=== PATIENT | female | born 1990 | race Caucasian/White ===

== ENCOUNTER → 2017-08-29 | Outpatient (CLI) | payer OTHER | END | disposition home or self-care (01) | LOC: LABWHC1 14:06 | PROVIDERS: ATTEND Obstetrics & Gynecology | DX: Z34.90 Encounter for supervision of normal pregnancy, unspecified, unspecified trimester (principal) | CPT/HCPCS: 36415; 84702 ==

== ENCOUNTER → 2017-09-05 | Outpatient (CLI) | payer OTHER ==
--- NOTE | 2017-09-05 14:08 | US ---
EXAMINATION TYPE: US OB <= 14 wk fetus DATE OF EXAM: 09/05/2017 COMPARISON: Prior pelvic ultrasound August 25, 2017 CLINICAL HISTORY: V22.2,Z34.90. Confirm Dates, F/U from previous EXAM PERFORMED: Transabdominal (TA) EXAM MEASUREMENTS: GESTATIONAL AGE / DATING Physician Established: (6 weeks/6 days) EDC: 04/25/2018 Dates by LMP: (7 weeks/6 days) EDC: 04/18/2018 Dates by First Scan: (6 weeks/6 days) EDC: 04/25/2018 Dates by Current Scan for: (6 weeks/6 days) EDC: 04/25/2018 MATERNAL ANATOMY Uterus: 11.1 x 4.6 x 7.1 cm Right Ovary: 3.9 x 2.8 x 2.3 cm Left Ovary: 2.8 x 2.0 x 2.2 cm Post CDS / Adnexa: wnl Presence of free fluid: No Presence of corpus luteal cyst: Right Ovary= 2.0 x 1.4 x 1.8 cm Presence of subchorionic bleed: No GESTATION / SURVEY CRL: 0.9 cm (6 weeks/6 days) MSD: wnl Yolk Sac (normal less than 6mm): 3mm Heart Rate: 126 bpm Rhythm: Normal IUP: Viable IUP Single, viable IUP, No abnormality seen at this time Single live intrauterine gestation is now identified as as gestational sac, yolk sac, and pole are again seen. heart tones are detected and lower limits of normal. No free fluid is seen in p elvic cul-de-sac. Both ovaries are identified. Within the right ovary there is redemonstration of peripheral oval 2.0 c m lesion felt to reflect corpus luteal cyst. No suspicious adnexal masses are seen. IMPRESSION: Single live intrauterine gestation is identified with satisfactory progression from prior. Mean crown -rump length is 0.9 cm corresponding to 6 week 6 day old fetus.
== END | disposition home or self-care (01) ==
LOC: RADUSWWP 13:04 → EDUNIT# 13:40
PROVIDERS: ATTEND Obstetrics & Gynecology
DX: Z36.9 Encounter for antenatal screening, unspecified (principal); Z34.90 Encounter for supervision of normal pregnancy, unspecified, unspecified trimester; Z3A.01 Less than 8 weeks gestation of pregnancy
CPT/HCPCS: 36415; 76801; 84144; 84702

== ENCOUNTER 2017-09-11 18:01 | Emergency (ER) | payer OTHER ==
--- NOTE | 2017-09-11 18:57 | ED ---
General Adult HPI - General Chief complaint: Vaginal Bleeding Stated complaint: problems, 8 weeks Time Seen by Provider: 09/11/17 18:41 Source: patient Mode of arrival: ambulatory Limitations: no limitations - History of Present Illness Initial comments: patient is a 26-year-old who presents with a chief complaint of vaginal spotting and abdominal pain. Patient is 7 weeks and 5 days . Her last ultrasound showed adequate heart activity. Patient states that since yesterday she began to spot and has had mild abdominal pain around her bellybutton. Patient cannot identify any inciting incidences. There are no aggravating or alleviating factors. The patient denies any dysuria or frequency. Patient states that about 3 weeks ago she came to the emergency department for similar symptoms and was diagnosed with cervicitis and was treated with azithromycin, and Rocephin. She is placed on pelvic rest at that time. - Related Data Home Medications Medication Instructions Recorded Confirmed Kkk-Rgez-Bttka Acid 1 cap PO HS 08/25/17 09/11/17 [-U Capsule (formulary)] Allergies Allergy/AdvReac Type Severity Reaction Status Date / Time Penicillins Allergy Rash/Hives Verified 09/11/17 18:53 Sulfa (Sulfonamide Allergy Rash/Hives Verified 09/11/17 18:53 Antibiotics) Review of Systems ROS Statement: Those systems with pertinent positive or pertinent negative responses have been documented in the HPI. ROS Other: All systems not noted in ROS Statement are negative. Constitutional: Denies: fever Eyes: Denies: vision change ENT: Denies: ear pain, throat pain Respiratory: Denies: cough Cardiovascular: Denies: chest pain Endocrine: Denies: fatigue Gastrointestinal: Reports: abdominal pain, nausea, vomiting Genitourinary: Denies: dysuria, frequency Musculoskeletal: Denies: back pain Skin: Denies: rash, lesions Neurological: Denies: headache Past Medical History Past Medical History: No Reported History History of Any Multi-Drug Resistant Organisms: None Reported Past Surgical History: No Surgical Hx Reported Past Psychological History: Anxiety Smoking Status: Never smoker Past Alcohol Use History: None Reported Past Drug Use History: None Reported General Exam Limitations: no limitations General appearance: alert, in no apparent distress Head exam: Present: atraumatic, normocephalic Respiratory exam: Present: normal lung sounds bilaterally Cardiovascular Exam: Present: regular rate, normal rhythm GI/Abdominal exam: Present: soft, other (abdominal exam is limited secondary to body habitus). Absent: distended, tenderness Rectal exam: Present: deferred Back exam: Absent: CVA tenderness (R), CVA tenderness (L) Neurological exam: Present: alert, oriented X3 Psychiatric exam: Present: normal affect, normal mood Skin exam: Present: warm, dry, intact Course Vital Signs 09/11/17 09/11/17 18:22 20:38 Temperature 98.1 F 97.5 F L Pulse Rate 87 80 Respiratory 20 18 Rate Blood Pressure 134/64 137/70 O2 Sat by Pulse 100 100 Oximetry Medical Decision Making - Medical Decision Making patient is a 26-year-old presents with a chief complaint of vaginal spotting, 7 weeks and 5 days . We'll send basic labs, hCG, urinalysis, and sent patient for a ultrasound. 9:51 PM Ultrasound evaluation of this patient shows a viable intrauterine dated at 7 weeks and 5 days without any identification of constant process. Laboratory evaluation is within normal limits. Beta hCG is just under 80,000. I discussed the results and findings with the patient. I explained to her what a "threatened " is and how she should manage it. The patient was instructed to follow-up with [employer]OYEE [employer], and was instructed to go on pelvic rest. Patient was instructed on signs and symptoms that should prompt return visit to the emergency department. At this time, patient is stable for discharge. - Lab Data Result diagrams: 09/11/17 20:08 09/11/17 20:08 Lab Results 09/11/17 09/11/17 09/11/17 Range/Units 19:30 20:08 20:08 WBC 10.9 H (3.8-10.6) k/uL RBC 4.86 (3.80-5.40) m/uL Hgb 12.5 (11.4-16.0) gm/dL Hct 39.1 (34.0-46.0) % MCV 80.4 (80.0-100.0) fL MCH 25.8 (25.0-35.0) pg MCHC 32.1 (31.0-37.0) g/dL RDW 15.1 (11.5-15.5) % Plt Count 359 (150-450) k/uL Neutrophils % 76 % Lymphocytes % 18 % Monocytes % 5 % Eosinophils % 1 % Basophils % 0 % Neutrophils # 8.3 H (1.3-7.7) k/uL Lymphocytes # 1.9 (1.0-4.8) k/uL Monocytes # 0.5 (0-1.0) k/uL Eosinophils # 0.1 (0-0.7) k/uL Basophils # 0.0 (0-0.2) k/uL Sodium 136 L (137-145) mmol/L Potassium 4.0 (3.5-5.1) mmol/L Chloride 104 (98-107) mmol/L Carbon Dioxide 23 (22-30) mmol/L Anion Gap 9 mmol/L BUN 7 (7-17) mg/dL Creatinine 0.58 (0.52-1.04) mg/dL Est GFR (MDRD) Af Amer >60 (>60 ml/min/1.73 sqM) Est GFR (MDRD) Non-Af >60 (>60 ml/min/1.73 sqM) Glucose 82 (74-99) mg/dL Calcium 9.8 (8.4-10.2) mg/dL HCG, Quant 01957.3 mIU/mL Urine Color Yellow Urine Appearance Clear (Clear) Urine pH 6.0 (5.0-8.0) Ur Specific [place] 1.011 (1.001-1.035) Urine Protein Negative (Negative) Urine Glucose (UA) Negative (Negative) Urine Ketones Negative (Negative) Urine Blood Negative (Negative) Urine Nitrite Negative (Negative) Urine Bilirubin Negative (Negative) Urine Urobilinogen <2.0 (<2.0) mg/dL Ur Leukocyte Esterase Negative (Negative) Disposition Clinical Impression: Threatened Disposition: HOME SELF-CARE Condition: Good Instructions: Threatened Miscarriage (ED), Pelvic Rest (ED) Referrals: None,Stated [Primary Care Provider] - 1-2 days Malena Gary MD [STAFF PHYSICIAN] - 1-2 days
[2017-09-11 19:37] LABS: Appearance,Urine Clear (Clear); Bilirubin,Urine Negative (Negative); Glucose,Urine (UA) Negative (Negative); Ketones,Urine Negative (Negative); Leukocyte Esterase,Urine Negative (Negative); Nitrite,Urine Negative (Negative); Protein,Urine Negative (Negative); Specific Gravity,Urine 1.011 (1.001-1.035); UA Billing (MACRO vs. MICRO) CHEM; Urobilinogen,Urine <2.0 mg/dL (<2.0)
--- NOTE | 2017-09-11 19:59 | US ---
EXAMINATION TYPE: US OB <= 14 wk fetus DATE OF EXAM: 09/11/2017 COMPARISON: NONE CLINICAL HISTORY: Pain. spotting EXAM PERFORMED: Transabdominal (TA) EXAM MEASUREMENTS: GESTATIONAL AGE / DATING Physician Established: (7 weeks/5 days) EDC: 04/25/2018 Dates by LMP: (7 weeks/5 days) EDC: 04/25/2018 Dates by First Scan: (6 weeks/6 days) EDC: 04/25/2018 Dates by Current Scan for: (7 weeks/5 days) EDC: 04/25/2018 MATERNAL ANATOMY Uterus: 10.0 x 5.5 x 6.9 cm Post CDS / Adnexa: wnl Presence of free fluid: no Presence of corpus luteal cyst: no Presence of subchorionic bleed: no GESTATION / SURVEY CRL: 1.4cm (7 weeks/5 days) Yolk Sac (normal less than 6mm): 4 Heart Rate: 158 bpm Rhythm: Normal IUP: Viable IUP Beta HcG (if available): Not available at this time Viable IUP 7wks 5days AFIA 04/25/2018 HR 158BPM I see no complicating process. IMPRESSION: The ultrasound gestational age is 7 weeks 5 days.
[2017-09-11 20:20] LABS: Basophils % (A) 0 %; CH 25.4; CHCM 31.7; Eosinophils # (A) 0.1 k/uL (0-0.7); Eosinophils % (A) 1 %; HCT 39.1 % (34.0-46.0); HDW 2.22; HGB 12.5 gm/dL (11.4-16.0); Luc # (Auto) 0.06; Luc % (Auto) 1; Lymphocytes # (A) 1.9 k/uL (1.0-4.8); Lymphocytes % (A) 18 %; MCH 25.8 pg (25.0-35.0); MCHC 32.1 g/dL (31.0-37.0); MCV 80.4 fL (80.0-100.0); Mean Platelet Volume 7.4; Monocytes # (A) 0.5 k/uL (0-1.0); Monocytes % (A) 5 %; Neutrophils # (A) 8.3 k/uL (1.3-7.7); Neutrophils % (A) 76 %; RBC 4.86 m/uL (3.80-5.40); RDW 15.1 % (11.5-15.5); WBC 10.9 k/uL (3.8-10.6); WBC (Perox) 11.36
[2017-09-11 20:31] LABS: Anion Gap 9 mmol/L; Blood Urea Nitrogen 7 mg/dL (7-17); Calcium 9.8 mg/dL (8.4-10.2); Carbon Dioxide 23 mmol/L (22-30); Chloride 104 mmol/L (98-107); Glucose 82 mg/dL (74-99); Non-African American GFR(MDRD) >60 (>60 ml/min/1.73 sqM); Sodium 136 mmol/L (137-145)
[2017-09-11 22:02] VITALS: BP 153/91; PULSE 83; RESP 16; TEMP 98.3
== END 2017-09-11 22:02 | disposition home or self-care (01) ==
LOC: EC 18:01
DX: O20.0 Threatened abortion (principal); Z3A.01 Less than 8 weeks gestation of pregnancy; Z88.0 Allergy status to penicillin; Z88.2 Allergy status to sulfonamides; Z79.899 Other long term (current) drug therapy
CPT/HCPCS: 36415; 76801; 80048; 81003; 84702; 85025; 87086; 99284

== ENCOUNTER → 2017-09-18 | Outpatient (CLI) | payer OTHER ==
--- NOTE | 2017-09-18 09:26 | US ---
EXAMINATION TYPE: US OB <= 14 wk fetus DATE OF EXAM: 09/18/2017 COMPARISON: NONE CLINICAL HISTORY: 26-year-old female Z34.90 confirm dates. No symptoms today, confirm dates, spotting earlier in Technique: Transabdominal FINDINGS: EXAM MEASUREMENTS: GESTATIONAL AGE / DATING Physician Established: (8 weeks/5 days) EDC: 04/25/2018 Dates by LMP: (9 weeks/5 days) EDC: 04/18/2018 Dates by First Scan: (8 weeks/5 days) EDC: 04/25/2018 Dates by Current Scan for: (8 weeks/5 days) EDC: 04/25/2018 MATERNAL ANATOMY Uterus: 7.5 x 6.7 x 5.8cm Right Ovary: 3.2 x 2.6 x 2.4cm Left Ovary: not seen due to bowel gas and enlarging uterus Post CDS / Adnexa: wnl Presence of free fluid: no Presence of corpus luteal cyst: yes, right ovary = 2.2cm Presence of subchorionic bleed: no GESTATION / SURVEY CRL: 2.1 (8 weeks/5 days) MSD: wnl Yolk Sac (normal less than 6mm): not seen today Heart Rate: 167 bpm Rhythm: Normal IUP: Viable IUP Date of LMP: unknown Beta HcG (if available): not available 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 Single live uterine with established gestational age of 8 weeks 5 days by prior dating s can. Current ultrasound biometry is exactly concordant. 2. Complete survey recommended at 18-20 weeks.
== END | disposition home or self-care (01) ==
LOC: RADUSWWP 07:42
PROVIDERS: ATTEND Obstetrics & Gynecology
DX: Z34.91 Encounter for supervision of normal pregnancy, unspecified, first trimester (principal); Z3A.08 8 weeks gestation of pregnancy
CPT/HCPCS: 76801

== ENCOUNTER 2017-10-13 20:57 | Emergency (ER) | payer OTHER ==
[2017-10-13] MEDS ORDERED: MAGNESIUM CITRATE 296 ML BOTTLE ONE (22:50)
[2017-10-14] MEDS ORDERED: diphenhydrAMINE 50 MG/ML 1 ML VIAL ONE (00:34)
[2017-10-14] MEDS ORDERED: METOCLOPRAMIDE 5 MG/ML 2 ML VIAL ONE (00:34)
[2017-10-14 14:41] LABS: Basophils % (A) 0 %; Eosinophils # (A) 0.1 k/uL (0-0.7); Eosinophils % (A) 1 %; HCT 38.1 % (34.0-46.0); HGB 12.5 gm/dL (11.4-16.0); Lymphocytes # (A) 2.1 k/uL (1.0-4.8); Lymphocytes % (A) 20 %; MCH 26.3 pg (25.0-35.0); MCHC 32.7 g/dL (31.0-37.0); MCV 80.4 fL (80.0-100.0); Mean Platelet Volume 7.6; Monocytes # (A) 0.6 k/uL (0-1.0); Monocytes % (A) 5 %; Neutrophils # (A) 7.6 k/uL (1.3-7.7); Neutrophils % (A) 73 %; Platelet Count 323 k/uL (150-450); RBC 4.74 m/uL (3.80-5.40); RDW 14.9 % (11.5-15.5); WBC 10.4 k/uL (3.8-10.6)
[2017-10-14 16:03] LABS: HCG,Quantitative Serum 82346.8 mIU/mL
[2017-10-14 16:04] LABS: ALT 33 U/L (9-52); AST 19 U/L (14-36); Alkaline Phosphatase 56 U/L (38-126); Anion Gap 14 mmol/L; Blood Urea Nitrogen 6 mg/dL (7-17); Calcium 9.6 mg/dL (8.4-10.2); Carbon Dioxide 22 mmol/L (22-30); Chloride 102 mmol/L (98-107); Glucose 73 mg/dL (74-99); Potassium 4.1 mmol/L (3.5-5.1); Sodium 138 mmol/L (137-145); Total Bilirubin 0.2 mg/dL (0.2-1.3)
[2017-10-14 17:21] LABS: Appearance,Urine Clear (Clear); Bilirubin Confirmation, Urine Negative (Negative); Bilirubin,Urine Negative (Negative); Blood,Urine Negative (Negative); Color,Urine Yellow; Glucose,Urine (UA) Negative (Negative); Ketones,Urine Negative (Negative); Leukocyte Esterase,Urine Negative (Negative); Nitrite,Urine Negative (Negative); Protein Confirmation,Urine Negative (Negative); Specific Gravity,Urine 1.023 (1.001-1.035); Urobilinogen,Urine <2.0 mg/dL (<2.0)
--- NOTE | 2017-10-14 21:00 | US ---
EXAMINATION TYPE: US OB <= 14 wk fetus DATE OF EXAM: 10/14/2017 COMPARISON: NONE EXAM PERFORMED: transabdominal (TA) EXAM MEASUREMENTS: GESTATIONAL AGE / DATING Physician Established: (12wks/ 2days) EDC: 04/25/18 Dates by LMP: (13 wks/2 days) EDC: 04/18/18 Dates by First Scan: (12wks/2days) EDC: 04/25/18 Dates by Current Scan: (13wks/2days) EDC: 04/18/18 MATERNAL ANATOMY Uterus: 12.4 x 7.8 x 8.7cm Right Ovary: 3.4 x 2.3 x 1.7cm Left Ovary: 3.1 x 1.9 x 2.1cm Post CDS / Adnexa: wnl Presence of free fluid: no Presence of corpus luteal cyst: right ovary = 2.3 x 1.7 x 1.6cm GESTATION / SURVEY IUP: Single CRL: 7.1cm (13wks/2days) Yolk Sac (normal less than 6mm): not seen Heart Rate: 162 bpm Rhythm: normal Viable IUP PATIENT HISTORY: Pelvic cramping. Pain. Date of LMP: unknown IMPRESSION: Single viable IUP 13wks/2days with AFIA of 04/18/18. Probable corpus luteum right ovary
== END 2017-10-14 01:21 | disposition home or self-care (01) ==
LOC: EC 20:57
DX: O99.611 Diseases of the digestive system complicating pregnancy, first trimester (principal); K59.00 Constipation, unspecified; Z87.891 Personal history of nicotine dependence; Z88.0 Allergy status to penicillin; Z88.2 Allergy status to sulfonamides; Z3A.13 13 weeks gestation of pregnancy
CPT/HCPCS: 36415; 80053; 85025; 81003; 84702; 76801; 99284; 96374; 96375; J1200; J2765

== ENCOUNTER → 2017-11-24 | Outpatient (CLI) | payer OTHER ==
--- NOTE | 2017-11-24 11:18 | US ---
EXAMINATION TYPE: US OB anatomy transabd DATE OF EXAM: 11/24/2017 COMPARISON: US 09/2017 HISTORY: Z34.92 SUPERVISION OF NORMAL PREG IN SECOND TRIMESTER Anatomy, no complaints per patient, la rger habitus. TECHNIQUE: Transabdominal (TA) EXAM MEASUREMENTS: GESTATIONAL AGE / DATING Physician Established: (18 weeks/ 2days) EDC: 04/25/2018 Dates by LMP: (19 weeks/2 days) EDC: 04/18/2018 Dates by First Scan: (18 weeks/2 days) EDC: 04/25/2018 Dates by Current Scan for: (18 weeks/1 days) EDC: 04/26/2018 SURVEY IUP: Single PLACENTA: Posterior PREVIA: No previa SANTO: 14.0 cm Normal CERVICAL LENGTH (transabdominal: norm > 3.0cm): 3.7 cm BIOMETRY PRESENTATION: Vertex BPD: 4.1 cm 18 weeks / 3 days HC: 15.2 cm 18 weeks / 2 days AC: 12.4 cm 18 weeks / 0 days FL: 2.6 cm 17 weeks / 6 days ESTIMATED WEIGHT IN GRAMS: 218.2 grams ESTIMATED WEIGHT IN LBS/OZ: 0 lbs. 8 oz. WEIGHT PERCENTAGE BASED ON ESTABLISHED DATE: 27.3 % HC/AC: 1.2 cm Normal FL/AC: 20.6 Normal HEART RATE: 147 bpm RHYTHM: Normal ANATOMY SEEN (within normal limits): * Lateral Vent (< 1 cm) 0.7 cm Midline Falx Stomach Diaphragm Kidneys (bilateral) Bladder Cord Insert Three Vessel Cord Arms (bilateral) Legs (bilateral) ANATOMY NOT SEEN: Limited study due to body habitus and early age. * Cisterna Magna (< 1.1 cm) cm * Nuchal Fold (< 0.6 cm) cm * Cerebellum (varies with age) cm Choroid Plexus (bilateral)Cavus Septi Pellucidi Four Chamber Heart Outflow tracts: LVOT/RVOT Situs Nose / Lips Longitudinal Spine Transverse Spine MATERNAL WALL MEASUREMENT: 5.1 cm from skin to anterior uterine wall (if exam limited due to body pulido bitus). IMPRESSION: 1. Single live intrauterine with a sonographic gestational age of 18 weeks and 1 day and es timated date of delivery of 04/26/2018. Dates are concordant with menstrual age. 2. Limited study due to body habitus and early age. Therefore the above anatomy was not seen. T he patient can return for additional scan for further evaluation.
== END | disposition home or self-care (01) ==
LOC: RADUSWWP 09:51
PROVIDERS: ATTEND Obstetrics & Gynecology
DX: Z34.92 Encounter for supervision of normal pregnancy, unspecified, second trimester (principal); Z3A.18 18 weeks gestation of pregnancy
CPT/HCPCS: 76811

== ENCOUNTER → 2017-12-08 | Outpatient (CLI) | payer OTHER ==
--- NOTE | 2017-12-08 15:17 | US ---
EXAMINATION TYPE: US OB Call Back DATE OF EXAM: 12/08/2017 COMPARISON: 11/24/2017 CLINICAL HISTORY: 27-year-old female Z34.92 Supervision of Normal . call back from exam date d 11/24/2017 TECHNIQUE: Transabdominal scanning. FINDINGS: GESTATIONAL AGE / DATING Dates by Initial Survey Scan: (18 weeks/1 days) EDC: 04/26/2018 HEART RATE: 146 bpm RHYTHM: Normal ANATOMY SEEN (second anatomic survey look): Cisterna Magna (< 1.1 cm): 0.6 cm Nuchal fold: 3.1 mm Cerebellum: 2.3 cm Choroid Plexus (bilateral) Cavus Septi Pellucidi Nose / Lips Longitudinal Spine: (Limited due to patient body habitus but without any gross abnormality) Transverse Spine: (Limited due to patient body habitus but without any gross abnormality) ANATOMY STILL NOT SEEN (requiring an additional callback appt): 4 chamber heart rvot lvot situs MATERNAL WALL MEASUREMENT: 5.7 cm from skin to anterior uterine wall (if exam limited due to body pulido bitus). patient returning MondayDecember 22 at 2:20 to see remaining anatomy. IMPRESSION: 1. Rescan for missed anatomy. 2. A number of structures (four-chamber heart, outflow tracts, and situs) remain suboptimally visuali zed daily due to patient body habitus. 3. In addition, there is somewhat limited assessment of the spine but without any gross abnorma lity seen of this structure. 4. The remaining anatomy appears normal. The patient is scheduled to return for repeat scan for the r emaining missed anatomy on 12/22/2017.
== END ==
LOC: RADUSWWP 10:44
PROVIDERS: ATTEND Obstetrics & Gynecology
DX: Z53.9 Procedure and treatment not carried out, unspecified reason (principal)

== ENCOUNTER 2017-12-16 19:08 | Outpatient (CLI) | payer OTHER ==
[2017-12-16 19:34] LABS: Appearance,Urine Cloudy (Clear); Bacteria,Urine Few /hpf; Bilirubin,Urine Negative (Negative); Blood,Urine Negative (Negative); Color,Urine Yellow; Glucose,Urine (UA) Negative (Negative); Hyaline Casts,Urine 3 /lpf (0-2); Ketones,Urine Negative (Negative); Leukocyte Esterase,Urine Large (Negative); Mucus,Urine Occasional /hpf; Nitrite,Urine Negative (Negative); Protein,Urine Trace (Negative); RBC,Urine 1 /hpf (0-5); Specific Gravity,Urine 1.018 (1.001-1.035); Squamous Epithelial Cell,Urine 6 /hpf (0-4); Urobilinogen,Urine <2.0 mg/dL (<2.0); WBC,Urine 5 /hpf (0-5)
--- NOTE | 2018-01-15 09:46 | P.MSEPDOC ---
Presenting Problems - Arrival Data Date of Arrival on Unit: 12/16/17 Time of Arrival on Unit: 19:05 Mode of Transport: Ambulatory Medical History - Information : 1 Para: 0 Term: 0 : 0 Abortions: Spontaneous or Elective: 0 Number of Living Children: 0 - Gestational Age Gestational Age by AFIA (wks/days): 21 Weeks and 3 Days Physician Notification (Post) - Notification Comment Comment: dr everett at bedside to see pt. Disposition - Disposition Discharge Date: 12/16/17 Discharge Time: 20:09 I agree with the RN Medical Screening Exam: Yes Risk & Benefit of care provided described in d/c instruction: Yes Diagnosis: UNSPECIFIED ABDOMINAL PAIN
== END 2017-12-16 20:09 | disposition home or self-care (01) ==
LOC: FBPOP 19:08
PROVIDERS: ATTEND Obstetrics & Gynecology Obstetrics
DX: O99.89 Other specified diseases and conditions complicating pregnancy, childbirth and the puerperium (principal); R10.9 Unspecified abdominal pain; Z3A.21 21 weeks gestation of pregnancy
CPT/HCPCS: 81001; G0463; 99213

== ENCOUNTER → 2017-12-22 | Outpatient (CLI) | payer OTHER ==
--- NOTE | 2017-12-22 15:34 | US ---
EXAMINATION TYPE: US OB Call Back DATE OF EXAM: 12/22/2017 COMPARISON: CLINICAL HISTORY: Z34.92 SUPERVISION OF NORMAL . Call back GESTATIONAL AGE / DATING Dates by Initial Survey Scan: (22 weeks/1 days) EDC: 04/26/2018 HEART RATE: 147 bpm RHYTHM: Normal ANATOMY SEEN (second anatomic survey look): Four Chamber Heart: Outflow tracts:? LVOT/RVOT Situs: ANATOMY STILL NOT SEEN (requiring an additional callback appt): MATERNAL WALL MEASUREMENT: 4.5 cm from skin to anterior uterine wall (if exam limited due to body pulido bitus). Anatomy seen appear within normal limits IMPRESSION: 1. Additional anatomy seen appears within normal limits.
== END ==
LOC: RADUSWWP 14:10
PROVIDERS: ATTEND Obstetrics & Gynecology
DX: Z34.92 Encounter for supervision of normal pregnancy, unspecified, second trimester (principal)

== ENCOUNTER 2018-01-25 18:35 | Outpatient (CLI) | payer OTHER ==
[2018-01-25 19:03] VITALS: RESP 18; TEMP 97.9
[2018-01-25 20:04] VITALS: BP 134/77; PULSE 81
--- NOTE | 2018-02-02 09:06 | P.MSEPDOC ---
Presenting Problems - Arrival Data Date of Arrival on Unit: 01/25/18 Time of Arrival on Unit: 18:35 Mode of Transport: Ambulatory - Complaint OB-Reason for Admission/Chief Complaint: Decreased Movement, Headache, Visual Disturbances Comment: pt states she hasn't felt movement since 0000, also states high BP per [facility] nurse yesterday and floaters/migraines starting last week. Medical History - Information : 1 Para: 0 Term: 0 : 0 Abortions: Spontaneous or Elective: 0 Number of Living Children: 0 - Gestational Age Gestational Age by AFIA (wks/days): 27 Weeks and 1 Days Review of Systems - Review of Systems Constitutional: No problems Breast: No problems ENT: No problems Cardiovascular: No problems Respiratory: No problems Gastrointestinal: No problems Genitourinary: No problems Neurological: Dizziness Skin: No problems Vital Signs - Temperature Temperature: 97.9 F Temperature Source: Temporal Artery Scan - Pulse Right Sitting Brachial Pulse Rate: 81 Pulse Assessment Method: Automatic Cuff - Respirations Respiratory Rate: 18 Oxygen Delivery Method: Room Air - Blood Pressure Right Arm Sitting Blood Pressure: 134/77 Blood Pressure Mean: 96 Blood Pressure Source: Manual Cuff/Palpation Medical Screen Scoring (Pre) - Cervical Exam Dilation: Exam Deferred Effacement: Exam Deferred - Uterine Contractions Frequency: N/A Duration: N/A Intensity: N/A - Maternal Vital Signs Maternal Temperature: N/A Maternal Blood Pressure: N/A Signs of Preeclampsia: N/A Maternal Respirations: N/A - Maternal Trauma Maternal Trauma: N/A - Total Score Total Score (Pre): 0 Medical Screen Scoring (Post) - Cervical Exam Dilation: Exam Deferred Effacement: Exam Deferred - Uterine Contractions Frequency: N/A Duration: N/A Intensity: N/A - Maternal Vital Signs Maternal Temperature: N/A Signs of Preeclampsia: N/A Maternal Respirations: N/A - Pain Assessment Pain Scale Used: Numeric (1 - 10) Pain Intensity: 0 - Maternal Trauma Maternal Trauma: N/A - Assessment Heart Rate: 130 Heart Rate - NICHD Category: Category I (Normal) = 0 Position: N/A Station: N/A - Total Score Total Score (Post): 0 - Post Treatment Level of Risk Post Treatment Level of Risk: Low (0-5) Physician Notification (Post) - Physician Notified Physician Notified Date: 01/25/18 Physician Notified Time: 19:48 Physician/Practitioner Notified:: Dr. Chang Spoke With: Dr. Chang New Order Received: Yes - Notification Comment Comment: discharge pt home, follow up on Monday with scheduled appt Disposition - Disposition OB Disposition: Discharge to home, Written follow up instructions reviewed Discharge Date: 01/25/18 Discharge Time: 20:00 I agree with the RN Medical Screening Exam: Yes Risk & Benefit of care provided described in d/c instruction: Yes Diagnosis: DECREASED MOVEMENTS, THIRD TRIMESTER, FETUS 1
== END 2018-01-25 20:00 | disposition home or self-care (01) ==
LOC: FBPOP 18:35
PROVIDERS: ATTEND Obstetrics & Gynecology Obstetrics
DX: O36.8131 Decreased fetal movements, third trimester, fetus 1 (principal); Z3A.27 27 weeks gestation of pregnancy
CPT/HCPCS: 99213

== ENCOUNTER → 2018-03-23 | Outpatient (CLI) | payer OTHER ==
[2018-03-23 16:58] VITALS: BP 130/73; PULSE 101; RESP 16; TEMP 96.4
--- NOTE | 2018-04-29 08:29 | P.MSEPDOC ---
Presenting Problems - Arrival Data Date of Arrival on Unit: 03/23/18 Time of Arrival on Unit: 14:05 Mode of Transport: Ambulatory - Complaint OB-Reason for Admission/Chief Complaint: Decreased Movement Comment: reports decreased movement since monday Medical History - Information : 1 Para: 0 Term: 0 : 0 Abortions: Spontaneous or Elective: 0 Number of Living Children: 0 - Gestational Age Gestational Age by AFIA (wks/days): 35 Weeks and 2 Days Review of Systems - Review of Systems Constitutional: No problems Breast: No problems ENT: No problems Cardiovascular: No problems Respiratory: No problems Gastrointestinal: No problems Genitourinary: No problems Musculoskeletal: No problems Neurological: No problems Skin: No problems Vital Signs - Temperature Temperature: 96.4 F - Pulse Right Brachial Pulse Rate: 101 Pulse Assessment Method: Automatic Cuff - Respirations Respiratory Rate: 16 Oxygen Delivery Method: Room Air - Blood Pressure Right Arm Blood Pressure: 130/73 Blood Pressure Mean: 92 Blood Pressure Source: Automatic Cuff Medical Screen Scoring (Pre) - Uterine Contractions Frequency: N/A - Maternal Vital Signs Maternal Temperature: N/A Maternal Blood Pressure: N/A Signs of Preeclampsia: N/A Maternal Respirations: N/A - Pain Assessment Pain Scale Used: Numeric (1 - 10) Pain Intensity: 0 - Maternal Trauma Maternal Trauma: N/A - Assessment Baseline FHR: 140 Heart Rate - NICHD Category: Category I (Normal) = 0 NST: Reactive Position: N/A Station: N/A - Total Score Total Score (Pre): 0 - Level of Risk Level of Risk: Low (0-5) Physician Notification (Pre) - Physician Notified Physician Notified Date: 03/23/18 Physician Notified Time: 16:56 Physician/Practitioner Notifed:: marguerite Spoke With: marguerite - Notification Comment Comment: reported pt here for dfm, pt now feeling baby move. dr arevalo for pt discharge with next acel Disposition - Disposition OB Disposition: Discharge to home Discharge Date: 03/23/18 Discharge Time: 16:15 I agree with the RN Medical Screening Exam: Yes Risk & Benefit of care provided described in d/c instruction: Yes Diagnosis: DECREASED MOVEMENTS, THIRD TRIMESTER, FETUS 1
== END | disposition home or self-care (01) ==
LOC: FBPOP 15:51
PROVIDERS: ATTEND Obstetrics & Gynecology Obstetrics
DX: O36.8131 Decreased fetal movements, third trimester, fetus 1 (principal); Z3A.35 35 weeks gestation of pregnancy
CPT/HCPCS: 59025; G0463; 99213

== ENCOUNTER 2018-04-12 12:04 | Outpatient (CLI) | payer OTHER ==
[2018-04-12 13:03] LABS: Basophils % (A) 0 %; Eosinophils % (A) 0 %; HGB 11.9 gm/dL (11.4-16.0); Lymphocytes # (A) 1.4 k/uL (1.0-4.8); Lymphocytes % (A) 15 %; MCH 25.9 pg (25.0-35.0); MCHC 33.1 g/dL (31.0-37.0); MCV 78.3 fL (80.0-100.0); Mean Platelet Volume 7.7; Monocytes # (A) 0.5 k/uL (0-1.0); Monocytes % (A) 5 %; Neutrophils # (A) 7.5 k/uL (1.3-7.7); Neutrophils % (A) 78 %; Platelet Count 332 k/uL (150-450); RBC 4.59 m/uL (3.80-5.40); RDW 14.1 % (11.5-15.5); WBC 9.6 k/uL (3.8-10.6)
[2018-04-12 13:10] LABS: ALT 35 U/L (9-52); AST 22 U/L (14-36); Blood Urea Nitrogen 3 mg/dL (7-17); LDH 330 U/L (313-618); Uric Acid 4.4 mg/dL (3.7-7.4)
[2018-04-12 13:22] LABS: Appearance,Urine Clear (Clear); Bacteria,Urine Rare /hpf; Bilirubin,Urine Negative (Negative); Blood,Urine Negative (Negative); Color,Urine Yellow; Glucose,Urine (UA) Negative (Negative); Hyaline Casts,Urine 1 /lpf (0-2); Ketones,Urine Negative (Negative); Leukocyte Esterase,Urine Small (Negative); Mucus,Urine Moderate /hpf; Nitrite,Urine Negative (Negative); Protein,Urine 1+ (Negative); RBC,Urine 1 /hpf (0-5); Specific Gravity,Urine 1.019 (1.001-1.035); Squamous Epithelial Cell,Urine 3 /hpf (0-4); WBC,Urine 6 /hpf (0-5)
[2018-04-12 13:50] VITALS: BP 134/82; PULSE 99; RESP 18; TEMP 97
--- NOTE | 2018-04-29 08:35 | P.MSEPDOC ---
Presenting Problems - Arrival Data Date of Arrival on Unit: 04/12/18 Time of Arrival on Unit: 12:00 Mode of Transport: Ambulatory - Complaint OB-Reason for Admission/Chief Complaint: PIH Comment: from the office with orders for PIH eval Medical History - Information : 1 Para: 0 Term: 0 : 0 Abortions: Spontaneous or Elective: 0 Number of Living Children: 0 - Gestational Age Gestational Age by AFIA (wks/days): 38 Weeks and 1 Days Review of Systems - Review of Systems Constitutional: No problems Breast: No problems ENT: No problems Cardiovascular: No problems Respiratory: No problems Gastrointestinal: No problems Genitourinary: No problems Musculoskeletal: No problems Neurological: No problems Skin: No problems Vital Signs - Temperature Temperature: 97.0 F Temperature Source: Temporal Artery Scan - Pulse Sitting Brachial Pulse Rate: 99 Pulse Assessment Method: Automatic Cuff - Respirations Respiratory Rate: 18 Oxygen Delivery Method: Room Air O2 Sat by Pulse Oximetry: 98 - Blood Pressure Right Arm Sitting Blood Pressure: 134/82 Blood Pressure Mean: 99 Blood Pressure Source: Automatic Cuff Medical Screen Scoring (Pre) - Cervical Exam Dilation: Exam Deferred Effacement: Exam Deferred - Uterine Contractions Frequency: > 5 minutes apart = 1 Duration: N/A Intensity: N/A - Maternal Vital Signs Maternal Temperature: N/A Maternal Blood Pressure: N/A Signs of Preeclampsia: N/A Maternal Respirations: N/A - Pain Assessment Pain Scale Used: Numeric (1 - 10) Pain Intensity: 0 Pain Management Goal: 3 - Maternal Trauma Maternal Trauma: N/A - Assessment Baseline FHR: 130 Heart Rate - NICHD Category: Category I (Normal) = 0 NST: Reactive Position: N/A Station: N/A - Total Score Total Score (Pre): 1 - Level of Risk Level of Risk: Low (0-5) Physician Notification (Pre) - Physician Notified Physician Notified Date: 04/12/18 Physician Notified Time: 13:35 Physician/Practitioner Notifed:: Dr Chang Spoke With: Dr Chang New Order Received: Yes - Notification Comment Comment: labs, vital signs, NST discussed. dc home. rest this weekend. pt to call and make an appt for followup on Monday. Disposition - Disposition OB Disposition: Discharge to home Discharge Date: 04/12/18 Discharge Time: 13:50 I agree with the RN Medical Screening Exam: Yes Risk & Benefit of care provided described in d/c instruction: Yes Diagnosis: GESTATIONAL HTN W/O SIGNIFICANT PROTEINURIA, THIRD TRIMESTER
== END 2018-04-12 13:51 | disposition home or self-care (01) ==
LOC: FBPOP 12:04
PROVIDERS: ATTEND Obstetrics & Gynecology Obstetrics
DX: O13.3 Gestational [pregnancy-induced] hypertension without significant proteinuria, third trimester (principal); Z3A.38 38 weeks gestation of pregnancy
CPT/HCPCS: 59025; 81001; 82565; 83615; 84450; 84460; 84520; 84550; 85025

== ENCOUNTER 2018-04-18 06:00 | Inpatient (IN) | payer OTHER ==
[2018-04-18] MEDS: LACTATED RINGERS 1,000 ML IV SCH ×3 (06:30→16:43)
[2018-04-18] MEDS ORDERED: DEXTROSE 5% IN WATER 50 ML BAG ONE (08:00)
[2018-04-18] MEDS ORDERED: CLINDAMYCIN 150 MG/ML 6 ML VIAL ONE (08:00)
[2018-04-18 11:06] VITALS: BMI 46.3
[2018-04-18] MEDS ORDERED: METHYLERGONOVINE 0.2 MG/ML 1 ML AMP IM PRN (11:12)
[2018-04-18] MEDS ORDERED: LIDOCAINE 1% (PF) 10 MG/ML (30 ML SDV) SQ PRN (11:12)
[2018-04-18] MEDS ORDERED: OXYTOCIN 10 UNIT/ML 1 ML VIAL IM PRN (11:12)
[2018-04-18] MEDS ORDERED: CARBOPROST TROMETHAMINE 250 MCG/ML 1 ML AMP IM PRN (11:12)
[2018-04-18] MEDS ORDERED: TERBUTALINE 1 MG/ML VIAL SQ PRN (11:12)
[2018-04-18] MEDS ORDERED: OXYTOCIN 20 UNITS/1000 ML NS 1,000 ML IV SCH ×2 (11:45→20:15)
[2018-04-18 12:58] LABS: Basophils # (A) 0.1 k/uL (0-0.2); Basophils % (A) 1 %; Eosinophils # (A) 0.1 k/uL (0-0.7); Eosinophils % (A) 1 %; HCT 37.2 % (34.0-46.0); HGB 12.3 gm/dL (11.4-16.0); Lymphocytes # (A) 1.8 k/uL (1.0-4.8); Lymphocytes % (A) 18 %; MCH 26.3 pg (25.0-35.0); MCHC 33.1 g/dL (31.0-37.0); MCV 79.4 fL (80.0-100.0); Mean Platelet Volume 7.6; Monocytes # (A) 0.5 k/uL (0-1.0); Monocytes % (A) 5 %; Neutrophils # (A) 7.4 k/uL (1.3-7.7); Neutrophils % (A) 75 %; Platelet Count 301 k/uL (150-450); RBC 4.68 m/uL (3.80-5.40); RDW 14.4 % (11.5-15.5); WBC 9.9 k/uL (3.8-10.6)
[2018-04-18] MEDS ORDERED: BUPIVACAINE (PF) 0.25% 30 ML VIAL ONE (14:22)
[2018-04-18] MEDS ORDERED: SODIUM CHLORIDE 0.9% 100 ML BAG ONE (14:22)
[2018-04-18] MEDS ORDERED: fentaNYL (PF) 50 MCG/ML 5 ML AMP ONE (14:22)
[2018-04-18] MEDS: CLINDAMYCIN 900 MG in DEXTROSE 5% IN WATER 50 ML IVPB SCH ×2 (15:43)
[2018-04-18] MEDS ORDERED: CITRIC ACID-SODIUM CITRATE 15 ML CUP PO ONE (20:04)
[2018-04-18] MEDS ORDERED: METOCLOPRAMIDE 5 MG/ML 2 ML VIAL IVP PRN (20:06)
[2018-04-18] MEDS ORDERED: diphenhydrAMINE 50 MG CAP PO PRN (20:06)
[2018-04-18] MEDS ORDERED: ZOLPIDEM 5 MG TAB PO PRN (20:06)
[2018-04-18] MEDS ORDERED: ONDANSETRON 4 MG/2 ML VIAL IVP PRN (20:06)
[2018-04-18] MEDS ORDERED: diphenhydrAMINE 25 MG CAP PO PRN (20:06)
[2018-04-18] MEDS ORDERED: HYDROcodone/APAP 5-325MG 1 EACH TAB PO PRN (20:06)
[2018-04-18] MEDS ORDERED: NALOXONE 0.4 MG/ML 1 ML VIAL IV PRN (20:06)
[2018-04-18] MEDS ORDERED: diphenhydrAMINE 50 MG/ML 1 ML VIAL IVP PRN ×2 (20:06)
[2018-04-18] MEDS ORDERED: DEXTROSE 5% IV ONE ×2 (20:08)
[2018-04-18] MEDS ORDERED: ACETAMINOPHEN IV (For NPO) 1,000 MG in EMPTY BAG 1 BAG IVPB STA (20:08)
[2018-04-18] MEDS ORDERED: IBUPROFEN IV ONE ×2 (20:08)
[2018-04-18] MEDS ORDERED: WATER IV ONE ×2 (20:08)
[2018-04-18] MEDS ORDERED: ONDANSETRON 4 MG/2 ML VIAL ONE (20:16)
[2018-04-18] MEDS ORDERED: ceFAZolin 1,000 MG VIAL ONE (20:16)
[2018-04-18] MEDS ORDERED: LACTATED RINGERS 1,000 ML BAG IV ONE (20:16)
[2018-04-18] MEDS ORDERED: OXYTOCIN 10 UNIT/ML 1 ML VIAL ONE (20:16)
[2018-04-18] MEDS ORDERED: MORPHINE SULFATE (PF) 0.3 MG/0.3 ML SYR ONE (20:16)
[2018-04-18] MEDS ORDERED: diphenhydrAMINE 50 MG/ML 1 ML VIAL ONE (20:16)
[2018-04-18] MEDS ORDERED: CELLULOSE,OXIDIZED 1 EACH EACH MISCELLANE ONE (20:47)
--- NOTE | 2018-04-18 21:06 | P.OP ---
Date of Procedure: 04/18/18 Preoperative Diagnosis: IUP @ 39 0/7 weeks, gestational HTN, arrest of first stage of labor Postoperative Diagnosis: same Procedure(s) Performed: LTCS Anesthesia: epidural Surgeon: Thea Chang Car Mechanic #1: Billy Remy Estimated Blood Loss (ml): 500 IV fluids (ml): 800 Urine output (ml): 100 Pathology: other (placenta) Condition: stable Disposition: observation Indications for Procedure: arrest of labor for >4 hours Operative Findings: Normal uterus tubes and ovaries were appreciated, male infant delivered at 2033 , weight 613, Apgars of 8 and 9 at one and 5 minutes respectively Description of Procedure: The patient was prepped and draped in the usual fashion after spinal anesthesia was administered by anesthesia. A Pfannenstiel incision was made and extended of the abdominal cavity without difficulty. The bladder peritoneum was elevated and incised and reflected distally. A 2 cm incision was made in the transverse plane of the lower uterine segment to enter the uterus at which time clear fluid was noted. The incision was extended in both directions using the bandage scissors. The head was encountered within the field and delivered up and through the incision where the nose and mouth were thoroughly suctioned. Remainder of the was delivered onto the surgical field where the cord was doubly clamped, cut, and the infant was passed for resuscitative measures with weight and Apgars as noted above. A segment of cord was then doubly clamped, cut, and set aside should cord gases become necessary. The placenta was delivered manually, intact, and was grossly normal with a grossly normal three-vessel cord. The uterus was exteriorized and the interior cavity of the uterus swept of any remaining placental and membranous fragments with a laparotomy sponge. The margins of the incision were grasped with Romero clamps and the incision closed in 2 layers. First layer was a running locking layer of 0 vicryl from margin to margin followed by a second layer of imbricating 0 vicryl from margin to margin. Any small points of bleeding were then made hemostatic with the Bovie. Once hemostasis was achieved, the posterior cul-de-sac was suctioned with a guard and the uterine and ovarian findings are as noted above. The uterus was replaced within the abdominal cavity and the gutters swept of any remaining blood fluid or clot. The incision was again reexamined and hemostasis was noted to be excellent. interceed was placed on the incision Any small point of bleeding were made hemostatic with the Bovie. Once hemostasis was achieved the parietal peritoneum was loosely reapproximated. The layer of muscles were examined and made hemostatic with the Bovie. Attention was then turned to the fascia which was closed with 2 running stitches of 0 Vicryl proceeding from the lateral margins to the midpoint. The subcutaneous tissues were irrigated, made hemostatic with the Bovie, and reapproximated with a running stitch of 30 vicryl. The skin was reapproximated with 4-0 vicryl. Estimated blood loss for the case was approximately 600 mL. All sponge instrument and needle counts are correct. There were no complications. The patient tolerated the procedure well and proceeded to the recovery room in stable condition. Both mother and infant are resting comfortably in recovery.
[2018-04-18] MEDS: PRENATAL VIT-IRON-FOLIC ACID 1 EACH CAP PO SCH (23:17)
[2018-04-19] MEDS: CLINDAMYCIN 900 MG in DEXTROSE 5% IN WATER 50 ML IVPB SCH ×2 (05:32)
[2018-04-19 07:44] LABS: Basophils % (A) 0 %; Eosinophils % (A) 0 %; HCT 31.3 % (34.0-46.0); HGB 10.1 gm/dL (11.4-16.0); Lymphocytes # (A) 1.4 k/uL (1.0-4.8); Lymphocytes % (A) 11 %; MCHC 32.4 g/dL (31.0-37.0); MCV 80.2 fL (80.0-100.0); Mean Platelet Volume 7.6; Monocytes # (A) 0.6 k/uL (0-1.0); Monocytes % (A) 5 %; Neutrophils # (A) 10.6 k/uL (1.3-7.7); Neutrophils % (A) 83 %; Platelet Count 238 k/uL (150-450); RBC 3.91 m/uL (3.80-5.40); RDW 14.3 % (11.5-15.5); WBC 12.8 k/uL (3.8-10.6)
[2018-04-19] MEDS: SENNOSIDES-DOCUSATE SODIUM 1 EACH TAB PO SCH ×2 (08:29→20:46)
[2018-04-19] MEDS: IBUPROFEN 600 MG TAB PO PRN ×3 (08:30→22:56)
[2018-04-19] MEDS: ACETAMINOPHEN TAB 325 MG TAB PO PRN (16:16)
[2018-04-20] MEDS: IBUPROFEN 600 MG TAB PO PRN ×3 (04:54→19:34)
[2018-04-20] MEDS: ACETAMINOPHEN TAB 325 MG TAB PO PRN (08:24)
[2018-04-20] MEDS: SENNOSIDES-DOCUSATE SODIUM 1 EACH TAB PO SCH (08:24)
--- NOTE | 2018-04-20 09:43 | P.PNOBGPC ---
Subjective - Subjective Interval history: Motrin is not entirely adequate for pain control inpatient does not want to take [place]. Patient reports: Reports appetite normal, Reports voiding normally, Reports pain well controlled, Reports ambulating normally : doing well, in NICU, nursing well Objective - Vital Signs Latest vital signs: Vital Signs Temp Pulse Resp BP Pulse Ox 04/20/18 08:00 98 F 83 18 124/74 04/19/18 23:45 98.3 F 79 16 126/72 98 04/19/18 20:00 98.0 F 90 18 140/74 98 04/19/18 16:00 98.3 F 83 18 141/81 97 04/19/18 12:00 98.3 F 84 18 126/75 98 Intake and Output 04/19/18 04/20/18 04/20/18 22:59 06:59 14:59 Other: # Voids 2 1 - Exam Extremities: Present: normal Abdomen: Present: normal appearance, soft. Absent: distention, tenderness Incision: Present: normal, dry, intact Uterus: Present: normal, firm (The uterine fundus as tonic and nontender around the umbilicus.) Assessment and Plan (1) S/P section Current Visit: Yes Status: Acute Code(s): Z98.891 - HISTORY OF UTERINE SCAR FROM PREVIOUS SURGERY SNOMED Code(s): 469645434 Plan: Continue routine postoperative care as the remains and special care nursery for prophylactic antibiotics. Should there be improvement in checks x- ray and blood count, the infant may be discharged home tomorrow. Circumcision is still necessary prior to discharge.
[2018-04-21] MEDS: LACTATED RINGERS 1,000 ML IV SCH ×4 (00:39→21:11)
[2018-04-21] MEDS: SENNOSIDES-DOCUSATE SODIUM 1 EACH TAB PO SCH ×3 (00:40→23:09)
[2018-04-21] MEDS: traMADol 50 MG TAB PO SCH ×4 (00:40→23:09)
[2018-04-21] MEDS: PRENATAL VIT-IRON-FOLIC ACID 1 EACH CAP PO SCH ×3 (00:40→23:09)
[2018-04-21] MEDS: IBUPROFEN 600 MG TAB PO PRN ×3 (05:17→23:09)
--- NOTE | 2018-04-21 11:05 | P.PNOBGPC ---
Subjective - Subjective Patient reports: Reports appetite normal, Reports voiding normally, Reports pain well controlled, Reports ambulating normally : doing well, in NICU (Found with pneumothorax, will continue to receive antibiotics.) Objective - Vital Signs Latest vital signs: Vital Signs Temp Pulse Resp BP Pulse Ox 04/21/18 08:00 98.5 F 77 18 132/74 97 04/21/18 00:00 98 F 68 15 148/92 04/20/18 16:00 98.3 F 71 18 129/69 04/20/18 12:00 98.2 F 73 18 121/91 - Exam Extremities: Present: normal Abdomen: Present: normal appearance, soft. Absent: distention, tenderness Incision: Present: normal, dry, intact Uterus: Present: normal, firm (The uterine fundus as tonic and nontender just below the umbilicus.) Assessment and Plan (1) S/P section Current Visit: Yes Status: Acute Code(s): Z98.891 - HISTORY OF UTERINE SCAR FROM PREVIOUS SURGERY SNOMED Code(s): 205429308 Plan: As the infant remains and special care nursery for likely 7 days of antibiotic therapy, the patient will continue to have routine postoperative care. She will be discharged home tomorrow pending no complications. We have discussed at some length the ongoing concerns regarding the was otherwise doing well.
[2018-04-22] MEDS: traMADol 50 MG TAB PO SCH ×2 (00:59→10:55)
[2018-04-22] MEDS: IBUPROFEN 600 MG TAB PO PRN (06:34)
[2018-04-22 10:34] VITALS: BP 132/76; PULSE 74; RESP 14; TEMP 98.1
[2018-04-22] MEDS: SENNOSIDES-DOCUSATE SODIUM 1 EACH TAB PO SCH (10:55)
--- NOTE | 2018-04-22 12:14 | P.DS ---
Providers Date of admission: 04/18/18 06:00 Expected date of discharge: 04/22/18 Attending physician: Thea Chang Primary care physician: Philip Lopez - Discharge Diagnosis(es) (1) S/P section Current Visit: Yes Status: Acute Hospital Course: The patient is a 27-year-old 1 para 0 admitted at 39-0/7 weeks as established by good dating parameters. She is admitted for induction secondary to -induced hypertension. She is known to be group B strep positive. Her has otherwise been essentially uncomplicated. On labor and delivery, she had Pitocin augmentation started followed by artificial rupture of membranes. She later had an epidural catheter placed for analgesia. She progressed in the early portion of labor but ultimately arrested dilation and descent and was taken the operating room where she was delivered of a viable 6 lbs. 13 oz. baby boy with Apgars of 8 at 1 minute and 9 at 5 minutes. The patient's postoperative course has been entirely unremarkable as she has remained in the hospital secondary to the infant requiring prophylactic antibiotics in the special care nursery. She has been deemed stable for discharge on postoperative day #4 and was discharged home to follow-up in the office in 2 weeks for an incision check and 6 weeks routinely. Discharge instructions included calling for any significantly increased bleeding or foul- smelling lochia, significantly increased fever or abdominal pain, perineal complaints, breast complaints, incisional complaints, or anything else that concerned her. She was additionally instructed to have nothing in the vagina for at least 6 weeks time to include intercourse and to abstain from any heavy lifting over the same period of time. She lastly was instructed to do no driving until off of all pain medications or 2 weeks' time, whichever came first. She understood her instructions and agrees to follow up as noted above. Discharge medications included continued vitamins as she has opted to breast-feed. She additionally was to use nihn-plv-mvycaat analgesic pain medications but was also provided with a prescription for tramadol 50 mg 1-2 by mouth every 6 hours as needed for pain, #20 dispensed with no refills. Maternal blood type is O+ and rubella status is immune. Discharge hemoglobin and hematocrit were 10.1 and 31.3 respectively. Procedures: #1. Pitocin induction #2. Artificial rupture of membranes #3. Epidural analgesia #4. Primary low-transverse section Patient Condition at Discharge: Stable Plan - Discharge Summary New Discharge Prescriptions: No Action Wob-Geew-Tqigj Acid [-U Capsule (formulary)] 1 cap PO HS Discharge Medication List Xmi-Yifo-Npsry Acid [-U Capsule (formulary)] 1 cap PO HS [History] Follow up Appointment(s)/Referral(s): Thea Chang DO [Doctor of Osteopathic Medicine] - 2 Weeks Discharge Disposition: HOME SELF-CARE
== END 2018-04-22 12:41 | disposition home or self-care (01) | DRG 766 ==
LOC: 4FBP 06:00
PROVIDERS: ADMIT Obstetrics & Gynecology Obstetrics; ATTEND Obstetrics & Gynecology Obstetrics
PROC: 10907ZC Drainage of Amniotic Fluid, Therapeutic from Products of Conception, Via Natural or Artificial Opening (ICD-10-PCS; 2018-04-18)
PROC: 00HU33Z Insertion of Infusion Device into Spinal Canal, Percutaneous Approach (ICD-10-PCS; 2018-04-18)
PROC: 3E0R3NZ Introduction of Analgesics, Hypnotics, Sedatives into Spinal Canal, Percutaneous Approach (ICD-10-PCS; 2018-04-18)
PROC: 10D00Z1 Extraction of Products of Conception, Low, Open Approach (ICD-10-PCS; principal; 2018-04-18 20:16)
DX: O13.4 Gestational [pregnancy-induced] hypertension without significant proteinuria, complicating childbirth (principal); O99.824 Streptococcus B carrier state complicating childbirth; O61.0 Failed medical induction of labor; Z3A.39 39 weeks gestation of pregnancy; Z37.0 Single live birth
CPT/HCPCS: 85025; 86850; 86900; 86901; 88307

== ENCOUNTER 2020-09-14 16:12 | Outpatient (CLI) | payer BC ==
[2020-09-14] MEDS ORDERED: LACTATED RINGERS 1,000 ML IV SCH (17:30)
[2020-09-14 17:43] VITALS: BP 138/79; PULSE 93; RESP 16; TEMP 97.1
--- NOTE | 2020-09-14 18:52 | US ---
EXAMINATION TYPE: US OB BPP wo non-stress DATE OF EXAM: 09/14/2020 COMPARISON: US, this is first US for this . CLINICAL HISTORY: non reactive NST. Non reactive NST. . EXAM PERFORMED: Transabdominal (TA) BPP PARAMETERS: HEART RATE: 130 bpm. Second measurement: 134 bpm RHYTHM: Normal SANTO: 21.27 cm. SANTO measures high. DIAPHRAGM IMAGED: Yes BPP SCORIN. Breathin (1 episode of breathing of 30 second duration in 30 minutes of scanning time) 2. Movement: 2 (at least 3 discrete body movements in 30 minutes) 3. Tone: 2 (1 episode of active flexion/extension of limb) 4. SANTO: 2 (SANTO index > 5cm) TOTAL SCORE: 8 / 8 Imaging quality is slightly limited due to large patient body habitus.
--- NOTE | 2020-12-05 10:34 | P.MSEPDOC ---
Presenting Problems - Arrival Data Date of Arrival on Unit: 09/14/20 Time of Arrival on Unit: 16:30 Mode of Transport: Ambulatory - Complaint OB-Reason for Admission/Chief Complaint: Possible Onset of Labor, Rule Out SROM, Decreased Movement Comment: all starting today. dr everett on unit also giving orders Medical History - Information : 2 Para: 1 Term: 1 : 0 Abortions: Spontaneous or Elective: 0 Number of Living Children: 1 - Gestational Age Gestational Age by AFIA (wks/days): 37 Weeks and 4 Days Review of Systems - Review of Systems Constitutional: No problems Breast: No problems ENT: No problems Cardiovascular: No problems Respiratory: No problems Gastrointestinal: No problems Genitourinary: No problems Musculoskeletal: No problems Neurological: No problems Skin: No problems Vital Signs - Temperature Temperature: 97.1 F Temperature Source: Temporal Artery Scan - Pulse Radial Pulse Rate: 93 Pulse Assessment Method: Automatic Cuff - Respirations Respiratory Rate: 16 Oxygen Delivery Method: Room Air O2 Sat by Pulse Oximetry: 99 - Blood Pressure Right Arm Blood Pressure: 138/79 Blood Pressure Mean: 98 Blood Pressure Source: Automatic Cuff Medical Screen Scoring (Pre) - Cervical Exam Dilation: 1-3 cm = 1 Effacement: Exam Deferred Membranes: Intact - Uterine Contractions Frequency: N/A Duration: N/A Intensity: N/A - Maternal Vital Signs Maternal Temperature: N/A Maternal Blood Pressure: N/A Signs of Preeclampsia: N/A Maternal Respirations: N/A - Maternal Trauma Maternal Trauma: N/A - Assessment - Baby A Baseline FHR: 170 Heart Rate - NICHD Category: Category II (Indeterminate) = 3 - Total Score - Baby A Total Score - Baby A: 4 - Total Score - Baby B Total Score - Baby B: 1 - Total Score - Baby C Total Score - Baby C: 1 - Level of Risk - Baby A Level of Risk - Baby A: Low (0-5) - Level of Risk - Baby B Level of Risk - Baby B: Low (0-5) - Level of Risk - Baby C Level of Risk - Baby C: Low (0-5) Physician Notification (Pre) - Physician Notified Physician Notified Date: 09/14/20 Physician Notified Time: 17:00 New Order Received: Yes (bpp/ and iv bolus) - Notification Comment Comment: bpp at 1745 = 8/8. rowdy=[email or web address] everett. in talking to pt. home with instructions at 1837 Disposition - Disposition OB Disposition: Observe Discharge Date: 09/14/20 Discharge Time: 18:37 I agree with the RN Medical Screening Exam: Yes Physician's MSE Comment: I have neither seen nor examined this patient. Case reviewed; plan agreed upon as documented in EMR&OBIX.: Yes Diagnosis: RELATED CONDITIONS, UNSPECIFIED, THIRD TRIMESTER
== END 2020-09-14 18:30 | disposition home or self-care (01) ==
LOC: FBPOP 16:12
PROVIDERS: ATTEND Obstetrics & Gynecology
DX: O26.93 Pregnancy related conditions, unspecified, third trimester (principal); Z3A.37 37 weeks gestation of pregnancy
CPT/HCPCS: 59025; 76819; 84112; 96360; 96365; 96367; 99213; 99214

== ENCOUNTER 2020-09-24 09:51 | Inpatient (IN) | payer BC ==
[2020-09-21 16:02] VITALS: BMI 44.6
[2020-09-24] MEDS ORDERED: CLINDAMYCIN 900 MG in DEXTROSE 5% IN WATER 50 ML IVPB ONE ×2 (09:56)
[2020-09-24] MEDS ORDERED: LACTATED RINGERS 1,000 ML IV ONE (09:56)
[2020-09-24 10:42] LABS: Basophils % (A) 0 %; Eosinophils # (A) 0.1 k/uL (0-0.7); Eosinophils % (A) 1 %; HCT 38.6 % (34.0-46.0); HGB 12.7 gm/dL (11.4-16.0); Lymphocytes # (A) 1.4 k/uL (1.0-4.8); Lymphocytes % (A) 16 %; MCH 26.7 pg (25.0-35.0); MCV 81.1 fL (80.0-100.0); Mean Platelet Volume 8.6; Monocytes # (A) 0.4 k/uL (0-1.0); Monocytes % (A) 5 %; Neutrophils # (A) 6.7 k/uL (1.3-7.7); Neutrophils % (A) 78 %; Platelet Count 259 k/uL (150-450); RBC 4.76 m/uL (3.80-5.40); RDW 13.9 % (11.5-15.5); WBC 8.7 k/uL (3.8-10.6)
[2020-09-24] MEDS: CITRIC ACID-SODIUM CITRATE 15 ML CUP PO ONE ×2 (11:12→12:06)
[2020-09-24] MEDS: GENTAMICIN 500 MG in SODIUM CHLORIDE 0.9% 100 ML IVPB ONE ×2 (12:07→16:14)
[2020-09-24] MEDS: LACTATED RINGERS 1,000 ML IV SCH ×4 (12:08→20:00)
[2020-09-24] MEDS ORDERED: diphenhydrAMINE 50 MG CAP PO PRN (13:03)
[2020-09-24] MEDS ORDERED: SIMETHICONE 80 MG CHEWABLE PO PRN (13:03)
[2020-09-24] MEDS ORDERED: diphenhydrAMINE 50 MG/ML 1 ML VIAL IVP PRN ×2 (13:03)
[2020-09-24] MEDS ORDERED: METOCLOPRAMIDE 5 MG/ML 2 ML VIAL IVP PRN (13:03)
[2020-09-24] MEDS ORDERED: ONDANSETRON 4 MG/2 ML VIAL IVP PRN (13:03)
[2020-09-24] MEDS ORDERED: ZOLPIDEM 5 MG TAB PO PRN (13:03)
[2020-09-24] MEDS ORDERED: ACETAMINOPHEN TAB 325 MG TAB PO PRN (13:03)
[2020-09-24] MEDS ORDERED: NALOXONE 0.4 MG/ML 1 ML VIAL IV PRN (13:03)
[2020-09-24] MEDS ORDERED: ACETAMINOPHEN IV (For NPO) 1,000 MG in EMPTY BAG 1 BAG IVPB ONE (13:03)
[2020-09-24] MEDS ORDERED: diphenhydrAMINE 25 MG CAP PO PRN (13:03)
[2020-09-24] MEDS ORDERED: IBUPROFEN IV 800 MG in SODIUM CHLORIDE 0.9% 250 ML IV ONE (13:04)
[2020-09-24] MEDS ORDERED: OXYTOCIN 20 UNITS/1000 ML NS 1,000 ML IV SCH (13:15)
[2020-09-24] MEDS ORDERED: CLINDAMYCIN 900 MG in DEXTROSE 5% IN WATER 50 ML IVPB STA ×2 (15:31)
[2020-09-24] MEDS ORDERED: NALBUPHINE 10 MG/ML (1 ML AMP) ONE (16:25)
[2020-09-24] MEDS ORDERED: OXYTOCIN 10 UNIT/ML 1 ML VIAL ONE (16:25)
[2020-09-24] MEDS ORDERED: diphenhydrAMINE 50 MG/ML 1 ML VIAL ONE (16:25)
[2020-09-24] MEDS ORDERED: PHENYLEPHRINE-0.9% NACL SYG 1 MG/10 ML SYRINGE ONE (16:25)
[2020-09-24] MEDS ORDERED: ONDANSETRON 4 MG/2 ML VIAL ONE (16:25)
[2020-09-24] MEDS ORDERED: MORPHINE SULFATE (PF) 0.3 MG/0.3 ML SYR ONE (16:25)
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
--- NOTE | 2020-09-24 17:32 | P.OP ---
Date of Procedure: 09/24/20 Preoperative Diagnosis: IUP @ 39 0/7 weeks, h/o c/s x 1 desires RCS Postoperative Diagnosis: same Procedure(s) Performed: elective repeat section Anesthesia: spinal Surgeon: Thea Chang Sampling Theory Teacher #1: Malena Gary Estimated Blood Loss (ml): 303 IV fluids (ml): 1,000 Urine output (ml): 150 Pathology: other (placenta) Condition: stable Disposition: observation Indications for Procedure: this 30-year-old 001 at 39 0/7 weeks presented for repeat section, patient had a prior secondary to arrest of descent and dilation. Patient desired repeat . Operative Findings: normal uterus tubes and ovaries were appreciated, viable male delivered at 1656, weight of 7 lbs. 10 oz. Description of Procedure: patient was taken back to the operating suite where spinal anesthesia was found to be adequate by the anesthesia department. She was then prepped and draped in the normal sterile fashion in the dorsal supine position. A Pfannenstiel skin incision was made with the scalpel and carried through to the underlying layer of fascia. The fascia was then incised in the midline and extended laterally. The superior aspect of the fascial incision was then grasped the Jeanne clamps, elevated and underlying rectus muscles dissected off sharply. Attention was then turned to the inferior aspect of the fascial incision which was grasped jeanne clamps, elevated and underlying rectus muscles dissected off sharply once again. The rectus muscles were in the midline the peritoneum was identified and entered. A Chloé retractor was placed into the abdomen along with a bladder blade. A hysterotomy incision was made with scalpel amniotomy was performed and clear fluid was obtained. The was delivered via vacuum assist secondary to maternal body habitus. The umbilical cord was doubly clamped and cut and was handed off to awaiting RN. The placenta was then delivered manually and the uterus was cleared of all clots and debris. The uterine incision was then closed with 0 Vicryl in a running locked fashion from one lateral edge the other. A second number getting suture was performed. A small amount of bleeding was noted on the midportion of the uterine incision therefore a idbbnf-nw-nsjea suture was used to obtain hemostasis. The uterus was then returned to the abdomen and the Chloé retractor was removed. The hysterotomy incision was inspected and hemostasis was appreciated. The gutters were cleared of all clots and debris. The rectus muscles were inspected and found to be hemostatic. The fascia was then closed with 0 Vicryl in a running fashion from one lateral edge the midline and the other lateral edge the midline. The subcutaneous tissue was then irrigated and found to be hemostatic. The subcu tissue was then closed with 3-0 Vicryl in a running fashion. The skin was then closed with 4-0 Vicryl in a subarticular fashion. Steri-Strips and sterile dressings were applied as needed. All counts were noted to be correct 2 then the procedure. Patient tolerated procedure well. was taken to the nursery for observation at the end of the procedure.
[2020-09-24] MEDS: SERTRALINE 50 MG TAB PO SCH (21:39)
[2020-09-24] MEDS: SENNOSIDES-DOCUSATE SODIUM 1 EACH TAB PO SCH (21:39)
[2020-09-24] MEDS: PRENATAL VIT-IRON-FOLIC ACID 1 EACH CAP PO SCH (21:39)
[2020-09-25] MEDS: LACTATED RINGERS 1,000 ML IV SCH ×2 (05:08→20:56)
--- NOTE | 2020-09-25 06:43 | P.PN ---
Progress Note - Text Progress Note Date: 09/25/20 Postoperative day 1 status post section under spinal anesthesia, and intrathecal morphine given for postoperative analgesia, patient doing well, there is a anesthesia related competitions. Patient had no headache, vital signs stable Assessment and plan = postop day 1 status post , doing well there is no anesthesia related complication
--- NOTE | 2020-09-25 08:39 | P.PNOBGPC ---
Subjective - Subjective Principal diagnosis: POD 1 RCS Interval history: patient did well overnight, she did have some episodes of nausea which were controlled with IV Zofran and Reglan. Patient is ambulating and voiding without difficulty. She states her pain is well-controlled. Her lochia is minimal. Patient reports: Reports appetite normal, Reports voiding normally, Reports pain well controlled, Reports ambulating normally : doing well Objective - Vital Signs Latest vital signs: Vital Signs Temp Pulse Resp BP Pulse Ox 09/25/20 08:00 98.2 F 75 16 134/86 99 09/25/20 07:55 16 09/25/20 04:00 16 09/25/20 00:00 97.9 F 81 16 125/82 97 09/24/20 19:27 97.3 F L 58 L 16 113/59 98 09/24/20 18:57 58 L 16 114/54 97 09/24/20 18:27 60 16 116/56 97 09/24/20 18:11 70 17 134/58 100 09/24/20 17:57 73 16 105/51 100 09/24/20 17:42 69 16 109/54 99 09/24/20 17:27 97 F L 81 16 115/50 97 09/24/20 10:35 96.8 F L 80 16 133/93 96 Intake and Output 09/24/20 09/25/20 09/25/20 22:59 06:59 14:59 Intake Total 125 Output Total 200 1100 Balance -75 -1100 Intake: IV 125 Invasive Line 1 125 Output: Urine 200 1100 Uretheral (Shea) 800 Other: Voiding Method Indwelling Catheter Indwelling Catheter # Voids 1 - Exam Extremities: Present: normal Abdomen: Present: normal appearance, soft Incision: Present: normal, dry Assessment and Plan (1) Term Current Visit: Yes Status: Acute Code(s): Z34.90 - ENCNTR FOR SUPRVSN OF NORMAL , UNSP, UNSP TRIMESTER SNOMED Code(s): 45638522 (2) H/O section Current Visit: Yes Status: Acute Code(s): Z98.891 - HISTORY OF UTERINE SCAR FROM PREVIOUS SURGERY SNOMED Code(s): 126889644 (3) S/P section Current Visit: No Status: Acute Code(s): Z98.891 - HISTORY OF UTERINE SCAR FROM PREVIOUS SURGERY SNOMED Code(s): 498754858 Plan: this 30-year-old 2 now para 2 status post repeat section is doing well. We'll plan to increase ambulation today and continue routine postoperative care anticipate discharge home tomorrow.
[2020-09-25 08:57] LABS: Basophils % (A) 0 %; Eosinophils # (A) 0.1 k/uL (0-0.7); Eosinophils % (A) 1 %; HCT 35.8 % (34.0-46.0); HGB 11.9 gm/dL (11.4-16.0); Lymphocytes # (A) 1.4 k/uL (1.0-4.8); Lymphocytes % (A) 14 %; MCH 27.6 pg (25.0-35.0); MCHC 33.3 g/dL (31.0-37.0); MCV 82.8 fL (80.0-100.0); Mean Platelet Volume 8.5; Monocytes # (A) 0.5 k/uL (0-1.0); Monocytes % (A) 5 %; Neutrophils % (A) 80 %; Platelet Count 193 k/uL (150-450); RBC 4.32 m/uL (3.80-5.40); RDW 13.7 % (11.5-15.5); WBC 10.1 k/uL (3.8-10.6)
[2020-09-25] MEDS: SENNOSIDES-DOCUSATE SODIUM 1 EACH TAB PO SCH ×2 (09:02→22:33)
[2020-09-25] MEDS: IBUPROFEN 600 MG TAB PO PRN ×2 (13:04→22:33)
[2020-09-25] MEDS: HYDROcodone/APAP 5-325MG 1 EACH TAB PO PRN (20:24)
[2020-09-25] MEDS: SERTRALINE 50 MG TAB PO SCH (20:25)
[2020-09-25] MEDS: PRENATAL VIT-IRON-FOLIC ACID 1 EACH CAP PO SCH (20:25)
[2020-09-26] MEDS: HYDROcodone/APAP 5-325MG 1 EACH TAB PO PRN ×2 (06:39→15:05)
--- NOTE | 2020-09-26 08:09 | P.PNOBGPC ---
Subjective - Subjective Principal diagnosis: POD 2 repeat section Interval history: Patient is doing well. She is ambulating and voiding without difficulty. She is tolerating a regular diet without nausea or vomiting. She states her pain is controlled with oral pain medication she is pumping. Infant remains in the nursery and has been weaned off oxygen. Patient reports: Reports appetite normal, Reports voiding normally, Reports pain well controlled, Reports ambulating normally [place]: doing well Objective - Vital Signs Latest vital signs: Vital Signs Temp Pulse Resp BP Pulse Ox 09/25/20 22:43 97.7 F 80 18 121/82 99 09/25/20 16:00 97.8 F 67 16 120/75 97 09/25/20 12:00 98.2 F 66 16 140/73 98 Intake and Output 09/25/20 09/26/20 09/26/20 22:59 06:59 14:59 Other: # Voids 2 1 - Exam Extremities: Present: normal, edema Abdomen: Present: normal appearance, soft Incision: Present: normal, dry, intact Uterus: Present: normal - Labs Labs: Abnormal Lab Results - Last 24 Hours (Table) 09/25/20 Range/Units 08:25 Neutrophils # 8.0 H (1.3-7.7) k/uL Assessment and Plan (1) Term Current Visit: Yes Status: Acute Code(s): Z34.90 - ENCNTR FOR SUPRVSN OF NORMAL , UNSP, UNSP TRIMESTER SNOMED Code(s): 88596903 (2) H/O section Current Visit: Yes Status: Acute Code(s): Z98.891 - HISTORY OF UTERINE SCAR FROM PREVIOUS SURGERY SNOMED Code(s): 182978873 (3) S/P section Current Visit: No Status: Acute Code(s): Z98.891 - HISTORY OF UTERINE SCAR FROM PREVIOUS SURGERY SNOMED Code(s): 748791142 Plan: Patient is doing well on this postoperative day #2. Plan to continue routine postoperative care.
[2020-09-26 09:38] VITALS: RESP 16
[2020-09-26] MEDS: IBUPROFEN 600 MG TAB PO PRN ×2 (10:09→20:11)
[2020-09-26] MEDS: SENNOSIDES-DOCUSATE SODIUM 1 EACH TAB PO SCH ×2 (10:09→20:11)
[2020-09-26] MEDS: PRENATAL VIT-IRON-FOLIC ACID 1 EACH CAP PO SCH (20:11)
[2020-09-26] MEDS: SERTRALINE 50 MG TAB PO SCH (20:13)
[2020-09-27] MEDS: HYDROcodone/APAP 5-325MG 1 EACH TAB PO PRN ×2 (04:45→10:35)
--- NOTE | 2020-09-27 08:07 | P.DS ---
Providers Date of admission: 09/24/20 09:51 Expected date of discharge: 09/27/20 Attending physician: Thea Chang Primary care physician: Stated None - Discharge Diagnosis(es) (1) Term Current Visit: Yes Status: Acute (2) H/O section Current Visit: Yes Status: Acute (3) S/P section Current Visit: No Status: Acute Hospital Course: This is a 30-year-old 2 now para 2001 that presented to labor and delivery at 39 0/7 weeks for planned repeat section. Patient had a prior secondary to arrest of descent and dilation and desired repeat. Patient had been receiving routine care which has been essentially uncomplicated. Patient was taken back to the operating suite for scheduled C- section. was completed without difficulty for further details on the please the operative report viable male delivered at 1656, weight of 7 lbs. 10 oz. Patient's postoperative course has been uneventful. On this postop day #3 she is ambulating and voiding without difficulty. She is tolerating a regular diet without nausea or vomiting. She states her pain is well-controlled and she would like discharge home. Patient Condition at Discharge: Good Plan - Discharge Summary New Discharge Prescriptions: No Action Tvk-Qdgn-Iiejq Acid [-U Capsule (formulary)] 1 cap PO HS Sertraline HCl [Zoloft] 50 mg PO HS Calcium Carbonate [Tums] 500 mg PO DIRECTED PRN PRN Reason: Heartburn Discharge Medication List Hav-Umcu-Amfab Acid [-U Capsule (formulary)] 1 cap PO HS 08/25/17 [History] Calcium Carbonate [Tums] 500 mg PO DIRECTED PRN 09/21/20 [History] Sertraline HCl [Zoloft] 50 mg PO HS 09/21/20 [History] Follow up Appointment(s)/Referral(s): Thea Chang DO [Doctor of Osteopathic Medicine] - 2 Weeks Patient Instructions/Handouts: (DC), (GEN) Activity/Diet/Wound Care/Special Instructions: No tub baths or intercourse until 6 weeks post . Patient is to follow-up in 2 weeks for routine postoperative check. Discharge Disposition: HOME SELF-CARE
[2020-09-27] MEDS: SENNOSIDES-DOCUSATE SODIUM 1 EACH TAB PO SCH (09:10)
[2020-09-27 09:43] VITALS: BP 136/95; PULSE 76; TEMP 98.3
== END 2020-09-27 10:30 | disposition home or self-care (01) | DRG 788 ==
LOC: 4FBP 09:51
PROVIDERS: ADMIT Obstetrics & Gynecology Obstetrics; ATTEND Obstetrics & Gynecology Obstetrics
PROC: 10D00Z1 Extraction of Products of Conception, Low, Open Approach (ICD-10-PCS; principal; 2020-09-24 16:30)
DX: O34.211 Maternal care for low transverse scar from previous cesarean delivery (principal); F41.9 Anxiety disorder, unspecified; Z37.0 Single live birth; Z3A.39 39 weeks gestation of pregnancy; F32.9 Major depressive disorder, single episode, unspecified; O99.344 Other mental disorders complicating childbirth; L40.9 Psoriasis, unspecified; R11.0 Nausea; O99.72 Diseases of the skin and subcutaneous tissue complicating childbirth; Z87.891 Personal history of nicotine dependence
CPT/HCPCS: 85025; 86850; 86900; 86901

== ENCOUNTER → 2022-03-13 | Outpatient (CLI) | payer OTHER ==
[~2022-03-13] MED LIST: LACTATED RINGERS 1,000 ML IV ONE
[2022-03-13 19:41] VITALS: BP 118/73; PULSE 76; RESP 16; TEMP 96.9
--- NOTE | 2022-04-17 15:01 | P.MSEPDOC ---
Presenting Problems - Arrival Data Date of Arrival on Unit: 03/13/22 Time of Arrival on Unit: 17:53 Mode of Transport: Ambulatory - Complaint OB-Reason for Admission/Chief Complaint: Vaginal Bleeding Medical History - Information : 3 Para: 2 Term: 2 : 0 Abortions: Spontaneous or Elective: 0 Number of Living Children: 2 - Gestational Age Gestational Age by AFIA (wks/days): 25 Weeks and 4 Days Review of Systems - Review of Systems Constitutional: No problems Breast: No problems ENT: No problems Cardiovascular: No problems Respiratory: No problems Gastrointestinal: No problems Genitourinary: No problems Musculoskeletal: No problems Neurological: No problems Skin: No problems Vital Signs - Temperature Temperature: 96.9 F Temperature Source: Temporal Artery Scan - Pulse Pulse Oximetery Pulse Rate: 76 Pulse Assessment Method: Pulse Oximetry - Respirations Respiratory Rate: 16 Oxygen Delivery Method: Room Air O2 Sat by Pulse Oximetry: 99 - Blood Pressure Right Arm Blood Pressure: 118/73 Blood Pressure Mean: 88 Blood Pressure Source: Automatic Cuff Medical Screen Scoring - Cervical Exam Dilation (cm): 0 Membranes: Intact - Assessment - Baby A Baseline FHR: 145 Heart Rate - NICHD Category: Category I (Normal) NST: Reactive Physician Notification - Physician Notified Physician Notified Date: 03/13/22 Physician Notified Time: 18:39 Physician: Thea Chang New Order Received: Yes - Notification Comment Comment: Dr. Chang received report from Berhane Myers RN. Orders to give a 1L LR bolus and do a SVE. Maternal Triage Index - Maternal Triage Index Presenting for scheduled procedure w/no complaint: No - Stat/Priority 1 Stat Priority 1: No - Urgent/Priority 2 Urgent Priority 2: Yes Provider Notified: Thea Chang Provider Notified Time: 18:39 Criteria Met for Priority 2: Pt is with AFIA 06/22/2022 here at 25.4 weeks of gestations with c/o of spotting and cramping after sexual intercourse and rigorous physical activity. Pt denies LOF and regular UC's. Pt sates +FM. - Prompt/Priority 3 Prompt Priority 3: No - Non-Urgent/Priority 4 Non-Urgent Priority 4: No - Scheduled/Requesting Priority 5 Scheduled/Requesting Priority 5: No Disposition - Disposition OB Disposition: Discharge to home Discharge Date: 03/13/22 Discharge Time: 19:45 I agree with the RN Medical Screening Exam: Yes Case reviewed; plan agreed upon as documented in EMR&OBIX.: Yes Diagnosis: SPOTTING COMPLICATING , SECOND TRIMESTER
== END | disposition home or self-care (01) ==
LOC: FBPOP 17:53
PROVIDERS: ATTEND Obstetrics & Gynecology Obstetrics
DX: O26.852 Spotting complicating pregnancy, second trimester (principal); Z3A.25 25 weeks gestation of pregnancy
CPT/HCPCS: 96360; G0463; 99214